=== PATIENT | male | born 1935 | race Caucasian/White ===

== ENCOUNTER 2019-09-29 17:19 | Inpatient (IN) | payer OTHER ==
[~2019-09-29 17:19] MED LIST: ACIDOPHILUS1 EAC4 PO; CEFUROXIME500 MG PO; FLORINEF ACETA0.1 MG PO; FOLIC ACID1 MG PO; HALOPERIDOL 2 MG2 M1 PO; INTERMEZZO3.5 MG PO; IRON325 PO; LAXATIVE5 M1 PO; LORAZEPAM 0.50.5 MG PO; MIDODRINE HCL 55 M1 PO; MYLANTA MAXIMU355 ML PO; OMEPRAZOLE 20 M20 M1 PO; ONDANSETRON HCL4 M2 PO; PROMETHAZINE HC25 M1 PO; SLEEP AID50 MG PO; TYLENOL325 MG PO; VENTOLIN HFA 1818 GM INH; VITAMIN B-12500 MCG PO
--- NOTE | 2019-10-06 22:38 | DSS ---
[facility] [place] [address] SHORT STAY SUMMARY Name: JENNIFER GARCIA Room #: 521A-A [facility] IN M.R.#: [id number] Admission: 09/29/19 Attend Phys: Ignacio Gaines DO Discharge: 09/29/19 Date of : 37 Report #: [id number] THIS REPORT FOR: //name// CC: Allegra Garland DATE OF SERVICE: 09/29/2019 Of note, the patient was accepted as an inter-hospital transfer from medical bed at [facility] on 09/29/2019. He arrived at approximately 1730 hours. He was noted to be in pain, bruising over his ribs, according to the nurse. O2 saturation 88%. I called Dr. Lawrence, the registered medical transcriptionist hospitalist, to quickly examine and determine if there is a serious medical issue. Chest x-ray was obtained which showed diffuse bronchopneumonia. I was called back shortly before 7:00 p.m that patient needed to be immediately transferred to a med/surg bed for intravenous antibiotics and measures given his age and seriousness of the pneumonia. The patient had been signed out to me by Dr. Freitas at [facility]. There was evidence of pneumonia on the CT abdomen and pelvis that had been obtained on September 23. It is unclear to me at this time if that was addressed or how it was addressed at [facility]; however, the patient was clearly unstable for admission to psychiatry. I did not see the patient, did not perform mental status exam. I gave admission orders based on Dr. Freitas's discharge medications. Emergency discharge was done. I have advised Dr. Cowan, our assistant chief nursing officer, I will be happy to consult on the patient while he is in the medical bed. I am unable to provide further details about this patient given his very limited time on senior behavioral health unit. Also, there was a consultation done by Dr. Lawrence during his brief period on senior behavioral health that can provide exam information prior to her being emergencty moved/discharged to medical floor. <ELECTRONICALLY SIGNED> By: Ignacio Gaines DO 10/06/19 2238 1649 [id number] Ignacio Gaines DO /nt
== END 2019-09-29 19:52 | disposition home or self-care (01) | DRG 183 ==
LOC: SBH 17:19
PROVIDERS: ADMIT Psychiatry & Neurology Psychiatry
DX: S22.42XA Multiple fractures of ribs, left side, initial encounter for closed fracture (principal); J18.9 Pneumonia, unspecified organism; E87.1 Hypo-osmolality and hyponatremia; N17.9 Acute kidney failure, unspecified; R56.9 Unspecified convulsions; E87.6 Hypokalemia; M47.9 Spondylosis, unspecified; D47.3 Essential (hemorrhagic) thrombocythemia; D52.9 Folate deficiency anemia, unspecified; D53.9 Nutritional anemia, unspecified; E83.42 Hypomagnesemia; W18.39XA Other fall on same level, initial encounter; Y93.89 Activity, other specified; Y92.89 Other specified places as the place of occurrence of the external cause; Y99.8 Other external cause status; Z79.899 Other long term (current) drug therapy
CPT/HCPCS: 10880

== ENCOUNTER 2019-09-29 19:46 | Inpatient (IN) | payer OTHER ==
[~2019-09-29] VITALS: Ht 182.9 cm; Wt 59.0 kg
[2019-09-29 20:06] VITALS: BP 137/62
[2019-09-30 00:02] VITALS: BP 140/64
[2019-09-30 03:38] VITALS: BP 119/67
[2019-09-30 04:53] LABS: HEMATOCRIT 24.1 % (42.0-52.0); HEMOGLOBIN 8.2 gm/dL (14.0-18.0); MCH 36.2 pg (26.0-34.0); MCHC 33.9 g/dL (28.0-37.0); MCV 106.7 fL (80.0-100.0); RBC 2.26 mil/uL (4.50-6.00); RDW 15.9 % (10.5-14.5); WBC 11.4 thou/uL (4.0-11.0)
[2019-09-30 05:01] LABS: CALCIUM 8.2 mg/dL (8.5-10.1); CREATININE 1.3 mg/dL (0.7-1.3); POTASSIUM 3.1 mmol/L (3.5-5.1)
[2019-09-30 08:06] VITALS: BP 126/56
[2019-09-30 20:01] VITALS: BP 134/84
[2019-10-01 07:28] VITALS: BP 142/65
[2019-10-01 10:46] LABS: HEMOGLOBIN 7.9 gm/dL (14.0-18.0); MCH 35.1 pg (26.0-34.0); MCHC 32.8 g/dL (28.0-37.0); RBC 2.24 mil/uL (4.50-6.00); WBC 14.7 thou/uL (4.0-11.0)
[2019-10-01 10:59] LABS: CALCIUM 8.9 mg/dL (8.5-10.1); CREATININE 1.2 mg/dL (0.7-1.3); MAGNESIUM 1.7 mg/dL (1.8-2.4); POTASSIUM 3.7 mmol/L (3.5-5.1)
[2019-10-01 14:55] VITALS: BP 108/45
[2019-10-01 15:50] LABS: URINE BILIRUBIN NEGATIVE (Negative); URINE BLOOD NEGATIVE (Negative); URINE CLARITY CLEAR; URINE COLOR YELLOW; URINE GLUCOSE-RANDOM* NEGATIVE (Negative); URINE KETONES NEGATIVE (Negative); URINE LEUKOCYTES-REFLEX NEGATIVE (Negative); URINE NITRITE-REFLEX NEGATIVE (Negative); URINE PROTEIN (DIPSTICK) NEGATIVE (Negative); URINE UROBILINOGEN 0.2 E.U./dl (0.2-1.0)
[2019-10-01 20:10] VITALS: BP 119/62
--- NOTE | 2019-10-01 22:16 | HC ---
[facility] [place] [address] CONSULTATION Name: JENNIFER GARCIA Room #: 451-P [facility] IN M.R.#: [id number] Admission: 09/29/19 Attend Phys: Allegra Lawrence Discharge: Date of : 37 Report #: [id number] THIS REPORT FOR: //name// CC: Allegra Garland DATE OF SERVICE: 09/30/2019 INFECTIOUS DISEASE CONSULTATION REASON FOR CONSULTATION: Evaluate healthcare-associated pneumonia. HISTORY OF PRESENT ILLNESS: The patient is an 84-year-old with underlying history of dementia and chronic anemia, who presented on 09/19/2019 to [facility], where he had had a change in mental status, multiple falls, actually fractured left ribs. He was seen by Pulmonary Medicine and Neurology. No specific source of his metabolic encephalopathy was identified. He was transferred to Behavioral Psych Unit at [facility], where he had further deterioration and hypoxia. Hospitalized in the acute medical floor, where he was found to have bilateral infiltrates. It is noted that he is edentulous. He has had no seizure activity. There have been no syncopal episodes. Prior to his transfer, he underwent a LP, which was unremarkable other than very mild elevation in protein. He was placed on IV antibiotic therapy. His oxygen requirements are now at 2 liters per nasal cannula. The patient has no complaints, although he is confused. REVIEW OF SYSTEMS: SKIN: He has had no skin lesions or decubiti. LYMPHATIC: No known adenopathy. NEUROLOGIC: Evaluation as noted above. PSYCHIATRIC: As above. PULMONARY: As above with no complaints of chest pain. CARDIOVASCULAR: He has had no other cardiac issues. GASTROINTESTINAL: Denies any nausea, vomiting or diarrhea. GENITOURINARY: No dysuria, although he is incontinent. MUSCULOSKELETAL: No other arthritis symptoms. No other joint issues or back issues. HEMATOLOGIC: As noted above. ALLERGIES: None known, no allergy issues. MEDICATIONS: Vitamin B12, iron, omeprazole, Primatene, zolpidem, allopurinol, promethazine, ondansetron, Mylanta, Benadryl, Colace, Tylenol, folic acid, lorazepam. PAST MEDICAL HISTORY: Hypertension, gastroesophageal reflux, cataract surgery, [address] [address] CONSULTATION Name: JENNIFER GARCIA Room #: 451-P [facility] IN M.R.#: [id number] Admission: 09/29/19 Attend Phys: Allegra Lawrence Discharge: Date of : 37 Report #: [id number] anemia, thrombocytopenia with unremarkable bone marrow biopsy, dementia, herniorrhaphy. FAMILY HISTORY: Noncontributory. SOCIAL HISTORY: Nonsmoker, no significant alcohol intake, has been residing in a alf. PHYSICAL EXAMINATION: VITAL SIGNS: He was afebrile and hemodynamically stable. GENERAL: He was awake, but again unable to cooperate with the examination. SKIN: Without rash or decubitus. LYMPHATIC: No palpable adenopathy. HEENT: Eyes, without scleral icterus. Mouth was edentulous. NECK: Supple. LUNGS: With crackles in the bases bilaterally with no consolidation. HEART: Regular without murmur, gallop or rub. ABDOMEN: Soft, nontender, no hepatosplenomegaly or mass. No CVA tenderness. BACK: Spinal column was nontender. EXTREMITIES: Without clubbing, cyanosis or edema. He was alert, but unable to converse. He was able to move all extremities. LABORATORY STUDIES: Hemoglobin 8.2, WBC 11.4, platelet 151,000. Sodium 143, potassium 3.1, bicarb of 24, creatinine 1.3. Procalcitonin 0.2. TSH 3.2. MRSA screen negative. Blood cultures are pending. IMAGING: Chest x-ray with multifocal interstitial and airspace opacities throughout the lung mcginnis. IMPRESSION: An 84-year-old with: 1. Underlying dementia with healthcare-associated pneumonia. 2. Acute delirium. 3. Chronic cytopenias, stable. RECOMMENDATIONS: We will continue broad antibiotic coverage with Zosyn and Levaquin. Unable to obtain sputum culture. We will obtain viral respiratory panel and urine antigens. It is noted that the patient is edentulous. Follow serial laboratory studies and chest x-ray. Hopefully, his mood will improve after antibiotics. <ELECTRONICALLY SIGNED> By: Je Anaya MD 10/01/19 2216 18 0030 Je Anaya MD /nt
[2019-10-02 06:01] LABS: HEMATOCRIT 22.8 % (42.0-52.0); HEMOGLOBIN 7.5 gm/dL (14.0-18.0); MCH 35.2 pg (26.0-34.0); MCV 106.6 fL (80.0-100.0); RBC 2.13 mil/uL (4.50-6.00); RDW 16.2 % (10.5-14.5); WBC 14.3 thou/uL (4.0-11.0)
[2019-10-02 06:19] LABS: CALCIUM 8.6 mg/dL (8.5-10.1); CREATININE 1.3 mg/dL (0.7-1.3); MAGNESIUM 1.6 mg/dL (1.8-2.4); POTASSIUM 3.7 mmol/L (3.5-5.1)
[2019-10-02 07:19] VITALS: BP 126/78
--- NOTE | 2019-10-02 08:13 | HC ---
[facility] [place] [address] CONSULTATION Name: JENNIFER GARCIA Room #: 451-P ADM IN M.R.#: [id number] Admission: 09/29/19 Attend Phys: Allegra Lawrence Discharge: Date of : 37 Report #: [id number] THIS REPORT FOR: //name// CC: Allegra Garland DATE OF SERVICE: 10/01/2019 CONSULTING PHYSICIAN: Dr. Cadena. REASON FOR CONSULTATION: Adrenal insufficiency. HISTORY OF PRESENT ILLNESS: This is an 84-year-old male patient whose medical background is noted for issues of dementia, anemia, and hypertension. The patient presented on 09/29/2019 due to mental status changes in the context of a fall that he had as well. The patient was noted to have metabolic encephalopathy and his workup on presentation also revealed lower lobar pneumonia. Subsequently, it was determined to admit him for further care and monitoring. During his hospital stay, the patient continues to deal with the issues of behavioral changes, mental status changes with somewhat of an aggressive behavior. Due to the issues of hypertension and mental status changes, the suspicion of adrenal insufficiency developed. I interviewed the patient and although he answers some of my questions he seemed rather confused and answered some questions inappropriately. He often talked indeterminately. Overall, he denied active nausea, vomiting, but said that he is fatigued and tired. He was rather restless during most of my interview and trying to leave bed. REVIEW OF SYSTEMS: CONSTITUTIONAL: Some fatigue, tiredness, no weight changes. No fever or chills. PULMONARY: Occasional shortness of breath and cough and hemoptysis. CARDIAC: Occasional chest discomfort, palpitations and syncope. GASTROINTESTINAL: Abdominal discomfort. No nausea, vomiting, change in bowel frequency. NEUROLOGY: Negative for loss of consciousness, seizures or headaches. SKIN: No rash, ulceration, or major changes. MUSCULOSKELETAL: Occasional joint swelling, arthralgia, myalgia. Otherwise, review of systems noncontributory other than those mentioned in HPI. PAST MEDICAL HISTORY: 1. Dementia. 2. Hypertension. 3. GERD. 4. Cataract. [facility] [address] [place] [address] CONSULTATION Name: JOSEJENNIFER Lali Room #: 451-P [facility] IN ..#: [id number] Admission: 09/29/19 Attend Phys: Allegra Lawrence Discharge: Date of : 37 Report #: [id number] 5. Anemia. 6. Thrombocytopenia. OUTPATIENT MEDICATIONS: Reported include: 1. Vitamin B12. 2. Ferrous sulfate 325 mg daily. 3. Omeprazole 20 mg daily. 4. Midodrine 5 mg t.i.d. 5. Zolpidem 5 mg p.r.n. insomnia. 6. Haloperidol 2 mg p.r.n. anxiety. 7. Laxatives p.r.n. 8. Tylenol p.r.n. 9. Folic acid. 10. Lorazepam 0.5 mg q. 4 hours anxiety. ALLERGIES: There are no known drug allergies. SOCIAL HISTORY: The patient denies active use of tobacco, alcohol or illicit drugs. PHYSICAL EXAMINATION: GENERAL: This is an elderly male patient who seems restless and anxious, but not particularly in apparent distress. VITAL SIGNS: Blood pressure 119/62, heart rate is 80 per minute, temperature 37 Celsius, respiration rate 18 per minute. CONSTITUTIONAL: The patient is restless in bed, attempted ____ multiple times. He does not seem to be in pain or distress. HEENT: Anicteric sclerae. Intact extraocular motions. NECK: Supple, without JVD, carotid bruits or lymphadenopathy. I do not appreciate thyromegaly. CHEST: Noted for moderate entry bilaterally with scattered rales, rhonchi. No wheezes, crackles. HEART: Regular rate and rhythm without murmurs or gallops. ABDOMEN: Soft and lax. No guarding, no organomegaly. Active bowel sounds. EXTREMITIES: Lower extremity: Negative for ankle edema, skin breaks. Pedal pulses are appreciated. NEUROLOGIC: Awake, alert, seemingly not oriented, moves all limbs spontaneously. PSYCHIATRIC: Flat mood and affect. Inappropriate speech at times and unable to answer some of my questions. Seemed irrigated, agitated most of my interview time with him. LABORATORY DATA: Sodium 147, a prior value during this admission was 143, potassium 3.7, chloride 113, CO2 of 26, anion gap 8, BUN 27, creatinine 1.2, glucose 124, calcium 8.9, magnesium 1.7, GFR 58. White blood count 14.7, hemoglobin 7.9, hematocrit 24.0, platelets 149. TSH 3.24. Vitamin B12 of 1455. [address] [address] CONSULTATION Name: JENNIFER GARCIA Room #: 451-P ADM IN M.R.#: [id number] Admission: 09/29/19 Attend Phys: Allegra Lawrence Discharge: Date of : 37 Report #: [id number] ASSESSMENT AND PLAN: Adrenal insufficiency. In view of the patient's mental status changes, worsening behavioral outlook as well as intercurrent issues of hypotension, I believe his renal insufficiency is a legitimate thought. Having reviewed his general lab tests obtained so far, I am not impressed that he has significant electrolyte abnormalities to fit that pattern, namely hyponatremia or hyperkalemia, although this does not rule this possibility out. I will proceed with a screening test for adrenal insufficiency, namely by obtaining a random cortisol. If this value does not effectively rule out adrenal insufficiency, then we could certainly proceed into obtaining an adrenal stimulation test for a more definitive evaluation. Anemia. This is significant. The patient continues to be on iron sulfate and is being monitored for this issue. Pneumonia. The patient is currently on Levaquin therapy and tolerates it well, he is to continue the same. He is also on Zosyn therapy and tolerates it well. He is to continue the same. I certainly appreciate this consultation by Dr. Cadena. <ELECTRONICALLY SIGNED> By: Ant Weller MD 10/02/19 0813 17 0114 Ant Weller MD /nt
[2019-10-02 15:15] VITALS: BP 107/59
[2019-10-03 04:50] LABS: HEMATOCRIT 25.6 % (42.0-52.0); HEMOGLOBIN 8.5 gm/dL (14.0-18.0); MCH 35.5 pg (26.0-34.0); MCHC 33.1 g/dL (28.0-37.0); MCV 107.4 fL (80.0-100.0); RBC 2.39 mil/uL (4.50-6.00); RDW 16.5 % (10.5-14.5)
[2019-10-03 05:04] LABS: CALCIUM 8.7 mg/dL (8.5-10.1); CREATININE 1.4 mg/dL (0.7-1.3); MAGNESIUM 2.1 mg/dL (1.8-2.4); POTASSIUM 3.3 mmol/L (3.5-5.1)
[2019-10-03 07:53] VITALS: BP 128/60
[2019-10-03 15:13] VITALS: BP 95/56
[2019-10-03 19:20] VITALS: BP 113/69
[2019-10-04 05:59] LABS: HEMATOCRIT 23.2 % (42.0-52.0); HEMOGLOBIN 7.7 gm/dL (14.0-18.0); MCH 35.6 pg (26.0-34.0); MCHC 33.1 g/dL (28.0-37.0); MCV 107.7 fL (80.0-100.0); RBC 2.16 mil/uL (4.50-6.00); RDW 16.8 % (10.5-14.5); WBC 14.4 thou/uL (4.0-11.0)
[2019-10-04 06:00] LABS: CALCIUM 8.6 mg/dL (8.5-10.1); CREATININE 1.4 mg/dL (0.7-1.3); MAGNESIUM 2.1 mg/dL (1.8-2.4); POTASSIUM 3.2 mmol/L (3.5-5.1)
[2019-10-04 14:34] VITALS: BP 95/60
[2019-10-04 20:20] VITALS: BP 114/41
[2019-10-05 04:44] LABS: BASOPHILS 0.5 % (0.0-2.0); EOSINOPHILS 0.9 % (0.0-3.0); HEMATOCRIT 22.6 % (42.0-52.0); HEMOGLOBIN 7.5 gm/dL (14.0-18.0); LYMPHOCYTES 3.6 % (24.0-44.0); MCHC 33.4 g/dL (28.0-37.0); MCV 107.9 fL (80.0-100.0); MONOCYTES 4.4 % (1.0-8.0); PLATELET COUNT 118 thou/uL (150-400); POLYS 90.6 % (36.0-66.0); RDW 16.7 % (10.5-14.5); WBC 9.9 thou/uL (4.0-11.0)
[2019-10-05 07:50] VITALS: BP 100/55
[2019-10-05 09:06] LABS: CALCIUM 8.8 mg/dL (8.5-10.1); CREATININE 1.4 mg/dL (0.7-1.3); POTASSIUM 3.7 mmol/L (3.5-5.1)
[2019-10-05 15:00] VITALS: BP 115/61
[2019-10-05 19:25] VITALS: BP 102/45
[2019-10-06 05:27] LABS: CALCIUM 8.1 mg/dL (8.5-10.1); CREATININE 1.3 mg/dL (0.7-1.3); MAGNESIUM 1.8 mg/dL (1.8-2.4); POTASSIUM 3.7 mmol/L (3.5-5.1)
[2019-10-06 07:23] VITALS: BP 108/54
[2019-10-06 15:39] VITALS: BP 88/55
[2019-10-06 19:27] VITALS: BP 116/53
[2019-10-06 22:10] LABS: ADENOVIRUS Negative (Negative); INFLUENZA A Negative (Negative); INFLUENZA B Negative (Negative); METAPNEUMOVIRUS Negative (Negative); PARAINFLUENZA 1 Negative (Negative); PARAINFLUENZA 2 Negative (Negative); PARAINFLUENZA 3 Negative (Negative); RHINOVIRUS Negative (Negative); RSV A Negative (Negative); RSV B Negative (Negative)
[2019-10-07 05:56] VITALS: BP 109/58
[2019-10-07 08:19] VITALS: BP 89/51
[2019-10-07 09:16] LABS: CALCIUM 8.2 mg/dL (8.5-10.1); MAGNESIUM 1.6 mg/dL (1.8-2.4); POTASSIUM 3.7 mmol/L (3.5-5.1)
[2019-10-07 09:28] LABS: ALBUMIN 2.1 g/dL (3.4-5.0); DIRECT BILIRUBIN 0.5 mg/dL (<0.1-0.3); TOTAL BILIRUBIN 1.4 mg/dL (<0.1-1.0); TOTAL PROTEIN 5.2 g/dL (6.4-8.2)
[2019-10-07 12:10] VITALS: BP 98/51
[2019-10-07 15:09] VITALS: BP 86/51
[2019-10-07 19:09] VITALS: BP 94/58
[2019-10-08 05:30] LABS: WBC 11.4 thou/uL (4.0-11.0)
[2019-10-08 05:32] LABS: HEMATOCRIT 20.8 % (42.0-52.0); MCH 35.6 pg (26.0-34.0); MCHC 33.5 g/dL (28.0-37.0); MCV 106.2 fL (80.0-100.0); RBC 1.96 mil/uL (4.50-6.00); RDW 16.2 % (10.5-14.5)
[2019-10-08 06:05] LABS: CALCIUM 8.1 mg/dL (8.5-10.1); CREATININE 1.2 mg/dL (0.7-1.3); MAGNESIUM 1.8 mg/dL (1.8-2.4); POTASSIUM 3.8 mmol/L (3.5-5.1)
[2019-10-08 08:29] VITALS: BP 88/52
[2019-10-08 13:45] VITALS: BP 97/46; BP 97/48
[2019-10-08 19:27] VITALS: BP 96/60
[2019-10-08 21:02] LABS: HEMATOCRIT 26.7 % (42.0-52.0); HEMOGLOBIN 8.8 gm/dL (14.0-18.0)
[2019-10-09 05:28] LABS: CALCIUM 7.9 mg/dL (8.5-10.1); CREATININE 1.1 mg/dL (0.7-1.3); HEMATOCRIT 25.2 % (42.0-52.0); HEMOGLOBIN 8.4 gm/dL (14.0-18.0); MCH 33.2 pg (26.0-34.0); MCHC 33.3 g/dL (28.0-37.0); POTASSIUM 3.8 mmol/L (3.5-5.1); RBC 2.53 mil/uL (4.50-6.00); RDW 21.8 % (10.5-14.5); WBC 15.2 thou/uL (4.0-11.0)
[2019-10-09 05:32] LABS: MCV 99.6 fL (80.0-100.0)
[2019-10-09 08:07] VITALS: BP 107/56
[2019-10-09 14:54] VITALS: BP 107/57
[2019-10-09 14:58] VITALS: BP 109/58
[2019-10-09 15:04] VITALS: BP 110/74
[2019-10-09 19:36] VITALS: BP 90/67
[2019-10-10 05:38] LABS: HEMOGLOBIN 8.1 gm/dL (14.0-18.0); MCH 33.1 pg (26.0-34.0); MCHC 32.5 g/dL (28.0-37.0); MCV 101.8 fL (80.0-100.0); RBC 2.46 mil/uL (4.50-6.00); RDW 21.2 % (10.5-14.5); WBC 17.5 thou/uL (4.0-11.0)
[2019-10-10 05:44] LABS: CALCIUM 8.2 mg/dL (8.5-10.1); POTASSIUM 4.1 mmol/L (3.5-5.1)
[2019-10-10 15:05] VITALS: BP 113/39
[2019-10-10 15:35] VITALS: BP 104/54
[2019-10-10 20:00] VITALS: BP 83/57
[2019-10-11 04:00] VITALS: BP 100/57
[2019-10-11 05:03] LABS: CREATININE 1.1 mg/dL (0.7-1.3); POTASSIUM 4.1 mmol/L (3.5-5.1)
[2019-10-11 06:07] LABS: HEMATOCRIT 22.2 % (42.0-52.0); HEMOGLOBIN 7.4 gm/dL (14.0-18.0); MCH 33.5 pg (26.0-34.0); MCHC 33.4 g/dL (28.0-37.0); MCV 100.4 fL (80.0-100.0); RBC 2.22 mil/uL (4.50-6.00); RDW 20.4 % (10.5-14.5); WBC 15.5 thou/uL (4.0-11.0)
[2019-10-11 07:53] VITALS: BP 93/49
[2019-10-11 16:00] VITALS: BP 71/49
[2019-10-11 19:07] VITALS: BP 87/50
[2019-10-12 04:03] VITALS: BP 91/51
[2019-10-12 05:07] LABS: HEMATOCRIT 25.2 % (42.0-52.0); HEMOGLOBIN 8.2 gm/dL (14.0-18.0); MCH 33.4 pg (26.0-34.0); MCHC 32.7 g/dL (28.0-37.0); MCV 102.1 fL (80.0-100.0); RBC 2.46 mil/uL (4.50-6.00); RDW 20.3 % (10.5-14.5); WBC 14.3 thou/uL (4.0-11.0)
[2019-10-12 05:08] LABS: CREATININE 1.1 mg/dL (0.7-1.3); POTASSIUM 4.1 mmol/L (3.5-5.1)
[2019-10-12 09:15] VITALS: BP 94/84
[2019-10-12 19:01] VITALS: BP 129/93
[2019-10-12 19:46] VITALS: BP 90/49
[2019-10-13 05:01] VITALS: BP 113/56
[2019-10-13 06:09] LABS: HEMOGLOBIN 8.3 gm/dL (14.0-18.0); MCH 33.6 pg (26.0-34.0); MCHC 33.1 g/dL (28.0-37.0); MCV 101.6 fL (80.0-100.0); RBC 2.47 mil/uL (4.50-6.00); RDW 20.2 % (10.5-14.5); WBC 14.2 thou/uL (4.0-11.0)
[2019-10-13 06:27] LABS: CALCIUM 8.2 mg/dL (8.5-10.1); CREATININE 1.3 mg/dL (0.7-1.3); POTASSIUM 4.4 mmol/L (3.5-5.1)
[2019-10-13 07:45] VITALS: BP 88/53
[2019-10-13 13:01] VITALS: BP 85/34
[2019-10-13] MEDS ORDERED: FLOMAX0.4 MG PO (13:02)
[2019-10-13] MEDS ORDERED: FIRVANQ50 MG/1 ML PO (13:02)
[2019-10-13 13:12] VITALS: BP 90/50
[2019-10-13] MEDS ORDERED: REMERON15 M2 PO (13:23)
[2019-10-13 14:57] VITALS: BP 81/40
[2019-10-13 16:21] VITALS: BP 87/49
--- NOTE | 2019-10-13 17:06 | PATH ---
[facility] [address] [place] [address] PATHOLOGY RPT PROCEDURE Name: JENNIFER GARCIA Room #: 451-P ADM IN M.R.#: [id number] Admission: 09/29/19 Date of : 37 Discharge: Report #: [id number] Path Case #: [id number] [facility] Accession Number: [id number] . 01 Material submitted: . colon - LEFT SIDED COLON BIOPSY R/O INFECTIONS VS INFLAMMATORY COLITITS. Modifiers: left . 01 Clinical history: . Preop DX: Abnormal CT scan-Abd pain; N/V Postop DX: Colitis colonic ulcers r/o infectious vs inflammatory colitis Hx of colonic ulcers . 02 Diagnosis: Large intestinal mucosa, left sided colon, rule out infection versus inflammatory colitis, endoscopic biopsy: - Moderate to marked active colitis. Please see comment. - Negative for dysplasia or malignancy. (IUV:wallace; 10/13/2019) MBR 10/13/2019 1355 Local . 02 Comment: Examination shows a markedly expanded lamina propria comprised of neutrophils, eosinophils, lymphocytes as well as abundant plasma cells. Surface epithelial ulceration is identified. Explosive ulcers are not identified. There are no granulomata or viral inclusions. Subtle architectural abnormalities are present. There are a few crypt abscesses identified in addition to marked cryptitis. The process affects all the fragments with a similar intensity. Given the description, the differential diagnosis includes moderate to marked active colitis of inflammatory bowel disease, acute diverticulitis, infectious-type of colitis. There are no parasitic organisms identified. In addition, ischemic colitis cannot be excluded due to the surface regenerative changes as well as ulceration and lamina propria fibrosis identified focally. Fibrin thrombi are not identified within lamina propria vessels to confirm this finding. Please correlate clinically and with microbiological studies if indicated. (IUV:phlebotomist lab assistant; 10/13/2019) . 02 Electronically signed: . Lizzy Solitario MD, Pathologist NPI- [id number] . 01 Gross description: . Received in formalin labeled "Jennifer Garcia L sided colon Bx r/o infectious vs inflam colitis," are multiple fragments of [place] soft [address] [address] PATHOLOGY RPT PROCEDURE Name: JENNIFER GARCIA Room #: 451-P ADM IN M.R.#: [id number] Admission: 09/29/19 Date of : 37 Discharge: Report #: [id number] Path Case #: [id number] tissue measuring 1.7 x 0.4 x 0.1 cm in aggregate dimensions. The specimen is submitted entirely in cassette A1. (DAC; 10/12/2019) XDC/XDC 10/12/2019 1048 Local . 02 Pathologist provided ICD-10: K52.9 . 02 CPT . 758524 Specimen Comment: A courtesy copy of this report has been sent to [phone] Specimen Comment: [phone], Specimen Comment: Report sent to ,DR MERCADO / DR VEGA Performed at: [address] [facility], [place] [id number] MD Sung Lopez MD Phone: [phone] Performed at: [address] [id number] MD Lizzy Solitario MD Phone: [phone]
== END 2019-10-13 18:13 | DRG 177 ==
LOC: 4W 19:46
PROVIDERS: Hospitalist; Internal Medicine; Internal Medicine Infectious Disease; Nurse Practitioner; Nurse Practitioner Family; Specialist; ADMIT Hospitalist
PROC: 05HA33Z Insertion of Infusion Device into Left Brachial Vein, Percutaneous Approach (ICD-10-PCS; principal; 2019-10-06)
PROC: 30233N1 Transfusion of Nonautologous Red Blood Cells into Peripheral Vein, Percutaneous Approach (ICD-10-PCS; 2019-10-08)
PROC: 0DBM8ZX Excision of Descending Colon, Via Natural or Artificial Opening Endoscopic, Diagnostic (ICD-10-PCS; 2019-10-09)
PROC: 0DJ08ZZ Inspection of Upper Intestinal Tract, Via Natural or Artificial Opening Endoscopic (ICD-10-PCS; 2019-10-09)
DX: J15.6 Pneumonia due to other Gram-negative bacteria (principal); J96.01 Acute respiratory failure with hypoxia; G92 Toxic encephalopathy; K51.90 Ulcerative colitis, unspecified, without complications; K55.9 Vascular disorder of intestine, unspecified; S22.42XA Multiple fractures of ribs, left side, initial encounter for closed fracture; N17.9 Acute kidney failure, unspecified; E87.1 Hypo-osmolality and hyponatremia; E46 Unspecified protein-calorie malnutrition; E27.40 Unspecified adrenocortical insufficiency; R18.8 Other ascites; Z68.1 Body mass index [BMI] 19.9 or less, adult; F03.90 Unspecified dementia, unspecified severity, without behavioral disturbance, psychotic disturbance, mood disturbance, and anxiety; K21.9 Gastro-esophageal reflux disease without esophagitis; E87.6 Hypokalemia; M47.892 Other spondylosis, cervical region; D69.6 Thrombocytopenia, unspecified; E53.8 Deficiency of other specified B group vitamins; E83.42 Hypomagnesemia; D53.9 Nutritional anemia, unspecified; Z60.2 Problems related to living alone; R41.0 Disorientation, unspecified; D75.9 Disease of blood and blood-forming organs, unspecified; E86.0 Dehydration; R33.9 Retention of urine, unspecified; K44.9 Diaphragmatic hernia without obstruction or gangrene; Z80.0 Family history of malignant neoplasm of digestive organs; Z79.899 Other long term (current) drug therapy; W18.39XA Other fall on same level, initial encounter; Y93.89 Activity, other specified; Y92.89 Other specified places as the place of occurrence of the external cause; Y99.8 Other external cause status
CPT/HCPCS: 10047; 27000; 62110; 62900; 70005